=== PATIENT | female | born 1995 | race Caucasian/White ===

== ENCOUNTER 2016-08-03 09:29 | Emergency (ER) | payer SELFPAY ==
[2016-08-03 09:36] VITALS: BP 118/74; PULSE 112; TEMP 98.4; BMI 23.0
--- NOTE | 2016-08-03 09:44 | EDPRACDOC ---
- General Information Chief Complaint: Hand Pain Stated Complaint: RT HAND PAIN Time Seen by Provider: 08/03/16 09:38 Information Source: Patient Home Medications: Home Medications Oxycodone HCl/Acetaminophen [Percocet 5-325 mg Tablet] 1 tab PO Q6H PRN #15 tab 08/03/16 Allergies/Adverse Reactions: Allergies Allergy/AdvReac Type Severity Reaction Status Date / Time No Known Allergies Allergy Verified 08/03/16 09:34 - History of Present Illness Onset: couple hours ago HPI: Pt c/o R hand bruising and swelling after punching a refrigerator. Pt states she was angry. Denies numbness. R hand dominate Location: Reports: Right, Hand Dominant Hand: Right Mechanism: Reports: Punch, Spontaneous Circumstances: Reports: Other (punch injury) Associated Signs & Symptoms: Reports: Hand Pain ED Past Medical History - History Reviewed Yes Nurses notes reviewed and agree except as marked - Patient Medical History Psychological History: Denies: Depression Systemic History: Denies: Cancer - Social Medical History Smoking Status: Never smoker ETOH: None Substance Abuse: None EDM Review of Systems - Review of Systems Constitutional: No Symptoms Reported. negative: Fever, Chills, Weakness, Fatigue, Loss of Appetite Neurological: No Symptoms Reported. negative: Headache, Dizziness, Seizure, Numbness, Weakness, Speech Difficulty, Gait Difficulty Musculoskeletal: Hand Integumentary: Bruising Allergic/Immunologic: No Symptoms Reported. negative: Hives, Itching Hematologic: No Symptoms Reported. negative: Lymphadenopathy, Easy Bruising, Easy Bleeding Psychiatric: No Symptoms Reported. negative: Anxiety, Depression, Hallucinations, Insomnia, Suicidal - Physical Exam Constitutional: Alert Oriented to: Time, Person, Place Last recorded Vital Signs: Last Vital Signs Temp 98.4 F 08/03/16 09:32 Pulse 112 08/03/16 09:32 Resp 18 08/03/16 09:32 BP 118/74 08/03/16 09:32 Pulse Ox 97 08/03/16 09:32 Oxygen Pulse Oxygen Saturation 97 O2 Device Room Air Oxygen Flow Rate Fraction of Inspired Oxygen ( FIO2) - HEENT Head: Normal ( normocephalic) - Respiratory/Cardiovascular Respiratory: Normal - CTA (BBS clear to auscultation without adventitious sounds ) Cardiovascular: Normal (RRR without murmur, gallop or rub) - Musculoskeletal Extremities: Normal (Normal tone, Pulses 2+ No cyanosis or edema, FROM) - Integumentary Skin: Normal, Warm, Dry Lymphatics: Normal (no adenopathy) - Neurologic Memory Impaired: Normal Motor Function: Normal (Normal tone, Pulses 2+ No cyanosis or edema, FROM) Mood Description: Normal Perception: Normal ED Hand Problem Physical Exam - Musculoskeletal Hand: Swelling, Deformity, Moderate Tenderness Wrist: Normal Digit: Normal Digit Strength: Normal Nail: Normal Nailbed: Normal Soft Tissue: Normal Distal Function/Circulation: Normal - Integumentary Skin: Ecchymosis, Swelling Lymphatics: Normal ED Procedures - Splinting 1st splint Location: R hand Hand-Made Type: orthoglass Splint: ulna gutter splint Pre-Proc Neuro Vasc Exam: normal Post-Proc Neuro Vasc Exam: normal Other Devices: Sling - Differential Diagnosis Contusion, Metacarpal Fracture, Sprain - Diagnostic Imaging Hand Image interpreted by: Radiologist Acute 5th metacarpal fracture Decision Time to Discharge: 10:13 - Departure Disposition: Home Condition: Good Final Diagnosis: Displaced fracture of neck of right fifth metacarpal bone Qualifiers: Encounter type: initial encounter Fracture type: closed Qualified Code(s): S62.336A - Displaced fracture of neck of fifth metacarpal bone, right hand, initial encounter for closed fracture Instructions: RICE: Routine Care for Injuries, Hand Fracture (ED) Education/Counseling Given To: Patient Education/Counseling Given Regarding: Diagnosis, Treatment, Follow Up Referrals: None,No Provider [Primary Care Provider] - One Week Jesús Cid MD [Staff Physician] - One Week Prescriptions: Oxycodone HCl/Acetaminophen [Percocet 5-325 mg Tablet] 1 tab PO Q6H PRN #15 tab PRN Reason: Pain Additional Instructions: Elevate affected area as much as possible, apply cold compresses 20 mins at a time as needed for pain or swelling, wear splint until you follow up with orthopedics.
--- NOTE | 2016-08-03 10:11 | DIRPT ---
CLINICAL DATA: Injury EXAM: RIGHT HAND - COMPLETE 3+ VIEW COMPARISON: None. FINDINGS: There is a fracture involving the distal metaphysis of the fifth metacarpal. There is some palmar angulation of the distal fracture fragment. There is associated soft tissue swelling. IMPRESSION: Acute distal fifth metacarpal fracture. Electronically Signed By: Andrews Ramirez M.D. On: 08/03/2016 10:09
== END 2016-08-03 10:25 | disposition home or self-care (01) ==
LOC: ED 09:29
DX: S62.336A Displaced fracture of neck of fifth metacarpal bone, right hand, initial encounter for closed fracture (principal); X58.XXXA Exposure to other specified factors, initial encounter
CPT/HCPCS: 29125; 99282